=== PATIENT | male | born 1995 | race African-American/Black ===

== ENCOUNTER 2018-02-14 11:59 | Emergency (ER) | payer OTHER ==
[~2018-02-14] VITALS: Ht 180.3 cm; Wt 61.4 kg
[2018-02-14 12:53] VITALS: BP 110/87
== END 2018-02-14 12:58 | disposition home or self-care (01) ==
LOC: EMS 11:59
DX: G51.0 Bell's palsy (principal); F17.210 Nicotine dependence, cigarettes, uncomplicated; F12.10 Cannabis abuse, uncomplicated
CPT/HCPCS: 99283; 99406

== ENCOUNTER 2019-06-25 12:57 | Emergency (ER) | payer OTHER ==
[~2019-06-25] VITALS: Ht 182.9 cm; Wt 63.6 kg
[2019-06-25] MEDS ORDERED: SULFAMETHOX/TRIMETH DS 800-160 MG/TABLET PO ONE (17:15)
[2019-06-25] MEDS ORDERED: CEPHALEXIN MONOHYDRATE 500 MG CAPSULE PO ONE (17:15)
[2019-06-25] MEDS ORDERED: IBUPROFEN 400 MG TABLET PO ONE (17:15)
[2019-06-25 17:51] VITALS: BP 125/80
== END 2019-06-25 18:02 | disposition home or self-care (01) ==
LOC: EMS 13:00
DX: L02.31 Cutaneous abscess of buttock (principal); F17.210 Nicotine dependence, cigarettes, uncomplicated; F12.90 Cannabis use, unspecified, uncomplicated
CPT/HCPCS: 99406

== ENCOUNTER 2019-09-15 14:37 | Emergency (ER) | payer MEDICARE, OTHER ==
[~2019-09-15] VITALS: Ht 180.3 cm; Wt 61.4 kg
[2019-09-15] MEDS ORDERED: KETOROLAC TROMETHAMINE 60 MG/2 ML VIAL IM ONE (16:15)
[2019-09-15 17:14] VITALS: BP 132/71
[2019-09-15] MEDS ORDERED: GENTAMICIN SULFATE 0.3% OPHTHALMIC SOLUTION 5 ML OU ONE (17:30)
== END 2019-09-15 19:20 | disposition home or self-care (01) ==
LOC: EMS 14:37
DX: H10.9 Unspecified conjunctivitis (principal); J06.9 Acute upper respiratory infection, unspecified; F12.90 Cannabis use, unspecified, uncomplicated; F17.210 Nicotine dependence, cigarettes, uncomplicated
CPT/HCPCS: 36415; 71046; 86308; 96372; 99284; 99406; J1885